=== PATIENT | male | born 1995 | race Caucasian/White ===

== ENCOUNTER 2017-03-19 09:53 | Emergency (ER) | payer OTHER ==
[2017-03-19 10:12] VITALS: TEMP 98.9; BMI 32.5
--- NOTE | 2017-03-19 10:24 | PDOC ---
History of Present Illness <Ernst Dee - Last Filed: 03/19/17 10:50> - General History Source: Patient Exam Limitations: No Limitations - History of Present Illness Initial Comments: 03/19/17 10:55 The patient is a 21 year old male, with no significant past medical history, who presents to the emergency department with a diffuse rash for approximately 5 months. The patient reports noting a rash on his legs since November. Patient reports seeing his PCP, Dr. Coombs, who prescribed him a cream which he does not remember the name of, and did not relieve the rash. Patient reports going to an urgent care center over the weekend for his nonresolved rash, and was told he had scabies. Patient states he was prescribed [place], but has not been able to pick it up from the Pharmacy because it was closed. Patient reports presenting to the ED out of concern that the scabies can enter his bloodstream and cause organ failure, and also because he thinks he is contagious to other family members. Patient denies any associated fever, chills, cough, headache, or dizziness. He denies any chest pain, shortness of breath, diaphoresis, or palpitations. He denies any abdominal pain, nausea, vomiting, diarrhea, constipation, or changes in urination. He denies any recent travel or sick contacts. Allergies: NKDA Past Surgical History: None reported. Social History: Non smoker. No ETOH or recreational drug use. PCP: Dr. Coombs <Tanja Gan - Last Filed: 03/19/17 10:56> - General Chief Complaint: Rash Stated Complaint: SCABIES Time Seen by Provider: 03/19/17 10:23 Past History - Past Medical History COPD: No - Suicide/Smoking/Psychosocial Hx Smoking History: Never smoked Have you smoked in the past 12 months: No <Ernst Dee - Last Filed: 03/19/17 10:50> <Tanja Gan - Last Filed: 03/19/17 10:56> - Past Medical History Allergies/Adverse Reactions: Allergies Allergy/AdvReac Type Severity Reaction Status Date / Time No Known Allergies Allergy Verified 03/19/17 10:07 Home Medications: Ambulatory Orders Albuterol Sulfate Inhaler - [Ventolin Hfa Inhaler -] 1 - 2 inh PO PRN 03/25/15 Review of Systems - Review of Systems Able to Perform ROS?: Yes Comments:: 03/19/17 10:56 GENERAL/CONSTITUTIONAL: No fever or chills. No weakness. HEAD, EYES, EARS, NOSE AND THROAT: No change in vision. No ear pain or discharge. No sore throat. CARDIOVASCULAR: No chest pain or shortness of breath. RESPIRATORY: No cough, wheezing, or hemoptysis. GASTROINTESTINAL: No nausea, vomiting, diarrhea or constipation. GENITOURINARY: No dysuria, frequency, or change in urination. MUSCULOSKELETAL: No joint or muscle swelling or pain. No neck or back pain. SKIN: Yes diffuse rash. NEUROLOGIC: No headache, vertigo, loss of consciousness, or change in strength/ sensation. ENDOCRINE: No increased thirst. No abnormal weight change. HEMATOLOGIC/LYMPHATIC: No anemia, easy bleeding, or history of blood clots. ALLERGIC/IMMUNOLOGIC: No hives or skin allergy. <Tanja Gan - Last Filed: 03/19/17 10:56> *Physical Exam - Vital Signs Last Vital Signs Temp Pulse Resp BP Pulse Ox 98.9 F 81 19 149/92 99 03/19/17 10:08 03/19/17 10:08 03/19/17 10:08 03/19/17 10:08 03/19/17 10:08 <Ernst Dee - Last Filed: 03/19/17 10:50> - Vital Signs Last Vital Signs Temp Pulse Resp BP Pulse Ox 98.9 F 81 19 149/92 99 03/19/17 10:08 03/19/17 10:08 03/19/17 10:08 03/19/17 10:08 03/19/17 10:08 - Physical Exam Comments: 03/19/17 10:56 GENERAL: Awake, alert, and fully oriented, in no acute distress HEAD: No signs of trauma EYES: PERRLA, EOMI, sclera anicteric, conjunctiva clear ENT: Auricles normal inspection, hearing grossly normal, nares patent, oropharynx clear without exudates. Moist mucosa NECK: Normal ROM, supple, no lymphadenopathy, JVD, or masses LUNGS: Breath sounds equal, clear to auscultation bilaterally. No wheezes, and no crackles HEART: Regular rate and rhythm, normal S1 and S2, no murmurs, rubs or gallops ABDOMEN: Soft, nontender, normoactive bowel sounds. No guarding, no rebound. No masses EXTREMITIES: Normal range of motion, no edema. No clubbing or cyanosis. No cords, erythema, or tenderness NEUROLOGICAL: Cranial nerves II through XII grossly intact. Normal speech, normal gait SKIN: Diffuse Scabies. Warm, Dry, normal turgor. <Tanja Gan - Last Filed: 03/19/17 10:56> *DC/Admit/Observation/Transfer - Discharge Dispostion Admit: No - Attestations Physician Attestion: 03/19/17 10:23 I, Dr. Ernst Dee, attest that this document has been prepared under my direction and personally reviewed by me in its entirety. I further attest, that it accurately reflects all work, treatment, procedures and medical decision -making performed by me. <Ernst Dee - Last Filed: 03/19/17 10:50> - Attestations Scribe Attestion: 03/19/17 10:56 Documentation prepared by Tanja Gan, acting as medical equipment repairer for Ernst Dee DO. <Tanja Gan - Last Filed: 03/19/17 10:56> Diagnosis at time of Disposition: Scabies - Discharge Dispostion Disposition: HOME Condition at time of disposition: Unchanged/Unknown - Referrals Referrals: Jerel Coombs MD [Primary Care Provider] - - Patient Instructions Printed Discharge Instructions: DI for Scabies Additional Instructions: [place]- Once you use the cream, you are no longer contagious. SO - once all five you cream up and wash it off later, fog the house you are all good and you can have a great holiday. Stop reading stuff on the internet that may or may not be true. Scabies can not enter your bloodstream and cause all of your organs to shut down. Everything is going to be fine. Best- Dr. Ernst Dee - Post Discharge Activity
[2017-03-19 11:08] VITALS: BP 141/89; PULSE 76
== END 2017-03-19 11:07 | disposition home or self-care (01) ==
LOC: JER 09:53 → JERFT 09:53 → JER 11:07
DX: B86 Scabies (principal)
CPT/HCPCS: 99282-25